=== PATIENT | female | born 1950 | race Caucasian/White ===

== ENCOUNTER 2019-04-11 10:32 | Day surgery (SDC) | payer MEDICARE, BC ==
[~2019-04-11 10:32] MED LIST: Acetaminophen TAB* 325 MG PO ONE; Buffered Lidocaine 1% SYRIN* 1 ML/SYRINGE INTRADERM ONE; Famotidine IV* 10 MG/ML 2 ML (20 mg) IV ONE; Gabapentin CAP(*) 300 MG PO ONE; Lactated Ringers 1000 ML Bag* 1,000 ML IV SCH
[2019-04-11] MEDS ORDERED: Acetaminophen TAB* 325 MG ONE (10:35)
[2019-04-11] MEDS ORDERED: Gabapentin CAP(*) 300 MG ONE (10:35)
[2019-04-11] MEDS ORDERED: Famotidine IV* 10 MG/ML 2 ML (20 mg) ONE (10:36)
[2019-04-11] MEDS ORDERED: Propofol* 10 MG/ML 20 ML BTL ONE ×2 (10:43→12:25)
[2019-04-11] MEDS ORDERED: Midazolam* 1 MG/ML 2 ML VIAL (2 MG) ONE (10:43)
[2019-04-11] MEDS ORDERED: Lidocaine 2% PF * 5 ML VIAL ONE ×3 (10:43→11:27)
[2019-04-11] MEDS ORDERED: ceFAZolin 2 GM PREMIX in ORs 2 GM/50 ML BAG ONE (10:50)
[2019-04-11] MEDS ORDERED: Lidocaine 1% INJ* 10 MG/ML 30 ML SDV ONE (11:05)
[2019-04-11] MEDS ORDERED: Bupivacaine 0.5% SDV PF* 30ML VIAL ONE (11:06)
[2019-04-11] MEDS ORDERED: Ketorolac INJ* 30 MG/ML 1 ML VIAL IV PRN (12:40)
[2019-04-11] MEDS ORDERED: Naloxone* 0.4 MG/ML 1 ML VIAL IV PRN (12:40)
[2019-04-11] MEDS ORDERED: oxyCODONE TAB* 5 MG TAB PO PRN (12:40)
[2019-04-11] MEDS ORDERED: fentaNYL* 50 MCG/ML 2 ML VIAL (100 MCG VIAL) IV PRN (12:40)
[2019-04-11 13:42] VITALS: BP 117/45
--- NOTE | 2019-04-11 22:38 | OP ---
DATE OF OPERATION: 04/11/19 - [facility] DATE OF : 48 SURGEON: Zoe Tai MD [employer] OPERATOR: TONI Madsen ANESTHESIA: Block. PRE-OP DIAGNOSES: 1. 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 2. Rheumatoid arthritis of the right radiocapitellar joint. POST-OP DIAGNOSES: 1. 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 2. Rheumatoid arthritis of the right radiocapitellar joint. OPERATIVE PROCEDURE: Right ulnar nerve submuscular transposition and right radial head excision. ESTIMATED BLOOD LOSS: Zero. TOURNIQUET TIME: About 45 minutes. INDICATIONS FOR PROCEDURE: Lizabeth is a 68-year-old woman with rheumatoid arthritis. She has marked deformity of her elbow and has developed exquisite pain with range of motion of the elbow in her ulnar nerve distribution. Whenever she flexes her elbow, she gets significant electric shocks up and down her arm. Additionally, she cannot rotate her forearm. Her x-ray shows severe arthritic changes with markedly misshapen radial head with osteophytes at the radioulnar proximal joint. She presents for radial head excision and ulnar nerve transposition. DESCRIPTION OF PROCEDURE: The patient was brought to the operating room, was given a block anesthetic and placed in the supine position on the operating table with a tourniquet around her right upper arm. The skin of her right upper extremity was prepped and draped in the usual sterile fashion. The area of the medial incision was infiltrated with 10 cc of Marcaine 0.5% plain. A curvilinear incision was made centered between the medial epicondyle and the tip of the olecranon process. We dissected bluntly through the subcutaneous tissue down to the ulnar nerve and the cubital tunnel. The nerve was carefully dissected out proximally and distally. The FCU fascia was divided. The medial intermuscular septum was divided. The nerve was freed up from its bed and it was adherent to an osteophyte from the ulna. This was carefully debrided away from the osteophytes and the osteophyte was removed with a rongeur. The flexor pronator mass was isolated from the median nerve and then was incised in Z- lengthening fashion. The ulnar nerve was transposed anteriorly and the flexor pronator mass was repaired with 0 Vicryl suture. There was no tension on the nerve. The joint capsule where the osteophyte had been removed was repaired with 0 Vicryl suture. The wound was copiously irrigated with saline. The subcutaneous tissue was closed with 3-0 Vicryl suture and the skin with skin maxwell. Next, a longitudinal incision was made on the lateral aspect of the elbow and we dissected down to the extensor supinator origin, which was incised longitudinally over the radial head. Hohmann retractors were placed around the radial neck and then the sagittal saw was used to remove the radial head in its entirety. The rotation of the forearm improved after this was accomplished. The wound was copiously irrigated with saline. The joint capsule and the extensor supinator origin were repaired with # 1 Vicryl suture. Subcutaneous tissue was closed with 3-0 Vicryl and the skin with skin maxwell. The wounds were dressed with Xeroform, 4x4, Webril, and an Carl wrap. The patient tolerated the procedure well and was brought to the recovery room in good condition. [id number] #: [id number] DEXTER
== END 2019-04-11 14:00 | disposition home or self-care (01) ==
LOC: OREAST 10:32
PROVIDERS: ATTEND Orthopaedic Surgery
DX: G56.21 Lesion of ulnar nerve, right upper limb (principal); M06.821 Other specified rheumatoid arthritis, right elbow; J44.9 Chronic obstructive pulmonary disease, unspecified; E03.9 Hypothyroidism, unspecified; M81.0 Age-related osteoporosis without current pathological fracture; Z85.72 Personal history of non-Hodgkin lymphomas
CPT/HCPCS: A9270-GY; J0690; J2250; J2704; J3490